=== PATIENT | male | born 1945 | race Caucasian/White ===

== ENCOUNTER 2016-09-27 13:53 | Inpatient (IN) | payer OTHER ==
[~2016-09-27] VITALS: Ht 165.1 cm; Wt 112.5 kg
[~2016-09-27 13:53] MED LIST: AMLODIPINE5 M1 PO; CIPROFLOXACIN500 MG PO; DALIRESP500 MC1 PO; FERROUS SULFAT325 M2 PO; LAC PO; METFORMIN500 M1 PO; QVAR0.08 MG/Ac IH; VENTOLIN H0.09 MG/A1 INH
[2016-09-27 17:36] LABS: BASOPHIL % 0.7 % (0-2); PLATELET COUNT 331 x10^3mcL (130-400)
[2016-09-27 17:48] LABS: RED CELL DISTRIBUTION WIDTH 14.7 % (11.5-14.5)
[2016-09-27 18:17] LABS: rbc morphology (normal/abnorm) NORMAL (NORMAL)
[2016-09-27 18:29] LABS: microscopic required? NO
[2016-09-27 18:58] LABS: urine erythrocyte NEGATIVE (NEGATIVE)
[2016-09-27] MEDS ORDERED: CLINDAMYCIN HC300 MG PO (19:00)
[2016-09-27] MEDS ORDERED: FUROSEMIDE40 MG PO (19:00)
[2016-09-27] MEDS ORDERED: NOR5 PO (19:00)
[2016-09-27] MEDS ORDERED: LOSARTAN POTASS50 M1 PO (19:01)
[2016-09-27] MEDS ORDERED: DOXYCYCLINE HY100 MG PO (19:01)
[2016-09-27] MEDS ORDERED: CALCITRIOL0.5 MCG PO (19:01)
[2016-09-27 19:08] LABS: CALCIUM 8.7 mg/dL (8.5-10.1); CARBON DIOXIDE 29.7 mmol/L (21-32); CHLORIDE SERUM 105 mmol/L (98-107); CREATININE SERUM 2.2 mg/dL (0.7-1.3); GLUCOSE SERUM 100 mg/dL (74-106); POTASSIUM SERUM 5.1 mmol/L (3.5-5.1); SODIUM SERUM 143 mmol/L (136-145)
[2016-09-27 19:20] LABS: ALKALINE PHOSPHATASE 64 U/L (46-116); ALT/SGPT 47 U/L (16-63); AST/SGOT 33 U/L (15-37); BILIRUBIN TOTAL 0.2 mg/dL (0.20-1.00); HDL CHOLESTEROL 41 mg/dL (40-60); T4(THYROXINE) 6.5 ug/dL (4.7-13.3); TOTAL PROTEIN, SERUM 7.4 g/dL (6.4-8.2)
[2016-09-27 19:21] LABS: ALBUMIN 2.9 g/dL (3.4-5.0)
[2016-09-27 19:22] LABS: CHOLESTEROL 137 mg/dL (<200)
[2016-09-27 20:11] VITALS: BP 150/72
[2016-09-27 22:04] LABS: MAGNESIUM 2.1 mg/dL (1.8-2.4); PHOSPHOROUS 4.8 mg/dL (2.5-4.9)
[2016-09-27 22:05] LABS: CHOLESTEROL/HDL RATIO 3.1
[2016-09-28 00:48] VITALS: BP 150/72
[2016-09-28 04:50] VITALS: BP 127/58
[2016-09-28 10:16] VITALS: BP 136/70
[2016-09-28 14:48] VITALS: BP 141/73
[2016-09-28 17:59] VITALS: BP 118/58
[2016-09-28] MEDS ORDERED: ANC1I IV (18:41)
[2016-09-28] MEDS ORDERED: UNA1I IV (18:42)
[2016-09-28] MEDS ORDERED: FLA5PM IV (18:43)
[2016-09-28] MEDS ORDERED: BD LACTINEX1.4 MG PO (18:43)
[2016-09-28] MEDS ORDERED: LIPI10 PO (18:44)
[2016-09-28] MEDS ORDERED: APAP/HYDROCODON1 T13 PO (18:45)
[2016-09-28] MEDS ORDERED: COL100 PO (18:46)
[2016-09-28] MEDS ORDERED: MOR2I IV (18:47)
[2016-09-28 19:09] VITALS: BP 118/58
== END 2016-09-28 21:15 | DRG 559 ==
LOC: ED 13:53 → DU 18:53
PROVIDERS: Emergency Medicine; ADMIT Family Medicine
DX: T84.620A Infection and inflammatory reaction due to internal fixation device of right femur, initial encounter (principal); N17.0 Acute kidney failure with tubular necrosis; E43 Unspecified severe protein-calorie malnutrition; L03.115 Cellulitis of right lower limb; M86.9 Osteomyelitis, unspecified; Z68.41 Body mass index [BMI] 40.0-44.9, adult; T84.124A Displacement of internal fixation device of right femur, initial encounter; J44.9 Chronic obstructive pulmonary disease, unspecified; E11.65 Type 2 diabetes mellitus with hyperglycemia; E11.51 Type 2 diabetes mellitus with diabetic peripheral angiopathy without gangrene; I10 Essential (primary) hypertension; D64.9 Anemia, unspecified; E66.01 Morbid (severe) obesity due to excess calories; Z79.84 Long term (current) use of oral hypoglycemic drugs; Z99.3 Dependence on wheelchair; Z87.891 Personal history of nicotine dependence; Z99.81 Dependence on supplemental oxygen; Y83.1 Surgical operation with implant of artificial internal device as the cause of abnormal reaction of the patient, or of later complication, without mention of misadventure at the time of the procedure; Y92.009 Unspecified place in unspecified non-institutional (private) residence as the place of occurrence of the external cause
CPT/HCPCS: 36600; 82962; 83880; 94150; J0295; J0690; J3490; J7030; J7620; Q0092